=== PATIENT | female | born 1970 | race Caucasian/White ===

== ENCOUNTER 2018-06-19 08:45 | Outpatient (RCR) | payer OTHER, BC, SELFPAY | END 2018-06-19 08:46 | disposition home or self-care (01) | LOC: PT 08:45 | PROVIDERS: Family Provider Family Medicine | DX: Z98.61 Coronary angioplasty status (principal); I25.10 Atherosclerotic heart disease of native coronary artery without angina pectoris | CPT/HCPCS: 93798 ==

== ENCOUNTER → 2021-09-25 18:13 | Outpatient (CLI) | payer OTHER, BC, SELFPAY | PROVIDERS: Visit Provider Nurse Practitioner Family | DX: Z20.822 Contact with and (suspected) exposure to COVID-19 (principal) | CPT/HCPCS: C9803; U0003; U0005 ==

== ENCOUNTER → 2022-02-18 11:33 | Outpatient (POV) | payer OTHER, SELFPAY ==
[2022-02-18 13:34] VITALS: BP 120/76; PULSE 60; RESP 18; TEMP 36.5; O2SAT 98; BMI 34.9
--- NOTE | 2022-02-18 14:20 | [facility].PMCON ---
Assessment and Plan (1) Degenerative disc disease, lumbar Status: Acute Category: Medical Code(s): M51.36 - Other intervertebral disc degeneration, lumbar region (2) Lumbar radiculopathy Status: Acute Category: Medical Code(s): M54.16 - Radiculopathy, lumbar region - Assessment and plan all Dx Assessment and Plan for all problems:: Imaging: Cervical MRI Multilevel spondylitic changes. There is moderate left and mild right foraminal narrowing for the exiting nerve roots due to spondylitic change. C5-C6,, broad-based spondylitic change with a left paracentral and left foraminal predominance. No central stenosis or cord compression. Mild right and moderate left foraminal narrowing for the exiting C6 nerve roots. Lumbar x-ray Moderate degenerative disc disease and anterolisthesis at the level designated L5-L6. Please note there appears to be 11 thoracic thigh and 5 lumbar type of vertebra. No evidence of dynamic instability Plan: We will schedule the pt for LESI L4-L5. Pt is on plavix. We will reach out to her enrichment assistant to see if we can hold this medication prior to her procedure. Patient has been instructed to contact the clinic with any concerns before the next appointment. Dr. Butler has reviewed this note and agrees with this plan of care. This note was dictated using voice recognition software and make contain errors or omissions. HPI - Data of Consult Patient: new to practice Consult date: 02/18/22 Requesting Physician: IZABELA Silverman - Consult Narrative Reason for consult: LBP History of present illness: Ms. Giraldo is a 51 year old female who presents today as a new pt. Pt is referred by Dr. Edmond. Thank you for the referral. Pt presents with worsening LBP that radiates to BLE, R > L. Denies any recent falls or traumas. 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 Pain is worse with lumbar flexion, extension, and rotation. She cannot tolerate any prolonged activities such as standing and walking. This does get better with rest. She has had LESI in September in that provided significant relief. She continues to go to PT. She says that she was fairly active and used to run. Because of her LBP, she has been unable to run. She continues to swim. At night, she says that her toes would randomly curl. She has tried Gabapentin in the past but could not tolerate. Rates pain today as 04/10. [place] [id number], MEQ 0. CC: IZABELA Silverman [facility] History I have reviewed the patient's past medical history: Yes Medical History: Reports:: Hyperlipidemia, Hypertension, Myocardial Infarction Denies:: Diabetes Mellitus Type 2 *Have you ever received a pneumonia vaccine?: No *Have you received a flu vaccine this season?: Yes Other Medical History: Reports: Arthritis Laterality Cases: Bilateral: Tonsillectomy Other Surgeries: Yes: Cholecystectomy, - *Social History Smoking Status: Current every day smoker Alcohol Intake: never *Occupational Status:: employed *Travel in the last 8 weeks: None Family Hx:: No significant family history Review of Systems - Review of Systems Review of Systems: General: No recent weight changes, no fever, no sleep disturbances Respiratory: No cough, no shortness of air, no recurring pulmonary infections Cardiovascular/peripheral vascular: No chest pain, no palpitations, no edema, no shortness of breath Gastrointestinal: No new onset incontinence, normal bowel movements reported Genitourinary: No new onset incontinence Musculoskeletal: Low back pain Psychiatric: [Normal mood/affect] Neurological: [Denies weakness in extremities], [denies balance issues] Meds Home Medications Medication Instructions Recorded Confirmed Type Aspirin 81 mg PO DAILY 02/18/22 02/18/22 History Cetirizine HCl [Zyrtec 10mg Tab*] 10 mg PO HS 02/18/22 02/18/22 History Clopidogrel Bisulfate [Clopidogrel 75 mg PO DAILY 02/18/22 02/18/22 History 75mg Tab] Empagliflozin [Jardiance] 2
== END ==
PROVIDERS: Visit Provider Student in an Organized Health Care Education/Training Program
DX: M51.16 Intervertebral disc disorders with radiculopathy, lumbar region (principal); Z72.0 Tobacco use
CPT/HCPCS: 99202; G0463